=== PATIENT | male | born 1975 | race Caucasian/White ===

== ENCOUNTER 2023-08-26 05:57 | Emergency (ER) | payer SELFPAY ==
[2023-08-26 06:13] VITALS: TEMP 97.5
--- NOTE | 2023-08-26 06:15 | ERPHSYRPT ---
- History of Present Illness Source: patient Exam Limitations: no limitations Patient Subjective Stated Complaint: pt states he has been feeling short of breath since yesterday. denies any chest pain or pressure Triage Nursing Assessment: pt alert an d oriented, answes questions approp. pt ambulates into room with steady gait noted. pt short of breath, lungs cta bilat. occasional hacking cough noted. skin warm and dry Timing/Duration: yesterday Activities at Onset: none Severity of Dyspnea-Max: mild Severity of Dyspnea-Current: mild Possible Cause: no prior episodes Modifying Factors: Improves With: activity Associated Symptoms: anxiety, No chest pain/discomfort, No hemoptysis, No calf pain Hx Tetanus, Diphtheria Vaccination/Date Given: Yes Hx Influenza Vaccination/Date Given: No Hx Pneumococcal Vaccination/Date Given: No Immunizations Up to Date: Yes <LIN HOLLIDAY - Last Filed: 08/26/23 06:52> <OSMAN RANKIN - Last Filed: 08/26/23 13:00> - History of Present Illness Time Seen by Provider: 08/26/23 06:15 Physician History: This is an overweight 48-year-old white male patient who does not have a primary care provider and is not taking any medications despite a diagnosis in the past of hypertension and presents to the emergency room with complaint of cough and shortness of breath. Symptoms began yesterday. Patient is a daily smoker of cigarettes and has smoked a pack of cigarettes a day for approximately 30 years. Patient was brought in to the emergency department by the family vehicle. Patient was taking lisinopril approximately 2 years ago. However he has not been taking any medication for his high blood pressure. Patient is allowing a blood draw but refuses an IV line placement. (LIN HOLLIDAY) Allergies/Adverse Reactions: Penicillins Allergy (Intermediate, Verified 08/26/23 06:14) shrimp Allergy (Intermediate, Verified 08/26/23 06:14) Home Medications: No Reportable Medications [No Reported Medications] 08/26/23 [History] Travel Risk - International Travel Have you traveled outside of the country in past 3 weeks: No - Coronavirus Screening Are you exhibiting any of the following symptoms?: Yes Symptoms: Shortness of Breath Close contact with a COVID-19 positive Pt in past 14-21 Days: No - Vaccine Status Have you recieved a Covid-19 vaccination: No <LIN HOLLIDAY - Last Filed: 08/26/23 06:52> - Review of Systems Constitutional: No Symptoms Eyes: No Symptoms Ears, Nose, & Throat: No Symptoms Respiratory: Cough, Dyspnea, Dyspnea on Exertion (SMITH) Cardiac: No Symptoms Abdominal/Gastrointestinal: No Symptoms Genitourinary Symptoms: No Symptoms Musculoskeletal: No Symptoms Skin: No Symptoms Neurological: No Symptoms Psychological: No Symptoms Endocrine: No Symptoms Hematologic/Lymphatic: No Symptoms Immunological/Allergic: No Symptoms All Other Systems: Reviewed and Negative <LIN HOLLIDAY ElielJim - Last Filed: 08/26/23 06:52> - Past Medical History Pertinent Past Medical History: Yes Cardiac History: Hypertension - Past Surgical History Past Surgical History: Yes Gastrointestinal: Appendectomy - Social History Smoking Status: Current every day smoker How long have you smoked: 30yrs Exposure to second hand smoke: No Drug Use: none Patient Lives Alone: No <LIN HOLLIDAY - Last Filed: 08/26/23 06:52> - Physical Exam General Appearance: no apparent distress, alert, anxiety Eye Exam: PERRL/EOMI, eyes nml inspection Ears, Nose, Throat Exam: hearing grossly normal, normal ENT inspection, normal pharynx Neck Exam: normal inspection, non-tender, supple, full range of motion Respiratory Exam: normal breath sounds, lungs clear, airway intact, No chest tenderness, No respiratory distress Cardiovascular/Chest Exam: normal heart sounds, regular rate/rhythm Abdominal/Gastrointestinal Exam: soft, normal bowel sounds, No tenderness Rectal Exam: not done Extremity Exam: non-tender, normal range of motion, pedal edema (Bilateral feet and ankle) Neurologic Exam: alert, oriented x 3, cooperative, scene shifter II-XII nml as tested, normal mood/affect, nml cerebellar function, nml station & gait, sensation nml Skin Exam: normal color, warm, dry Lymphatic Exam: adenopathy SpO2 Interpretation: normal SpO2: 96 <LIN HOLLIDAY - Last Filed: 08/26/23 06:52> - Nursing Vital Signs Nursing Vital Signs: Initial Vital Signs Temperature 97.5 F 08/26/23 05:58 Pulse Rate 96 H 08/26/23 05:58 Respiratory Rate 24 08/26/23 05:58 Blood Pressure 193/121 01/09/24 05:58 O2 Sat by Pulse Oximetry 97 08/26/23 05:58 Pain Scale Pain Intensity 0 - Course Nursing assessment & vital signs reviewed: Yes EKG Interpreted by Me: RATE (97), Sinus Rhythm, NORMAL AXIS, prolonged QT interval (Borderline), NORMAL QRS, Other (No acute ischemic changes on today's twelve-lead EKG.) <LIN HOLLIDAY - Last Filed: 08/26/23 06:52> - Radiology Exams Chest X-ray Interpretation: Teleradiologist Report (Cardiomegaly pulmonary edema CHF) - CT Exams Chest CT Interpretation: Tele-radiologist Report (Negative for PE. Borderline enlarged heart. Small hiatal hernia diffuse pulmonary edema bilateral pleural effusions.) <OSMAN RANKIN - Last Filed: 08/26/23 13:00> Ordered Tests: Active Orders 24 hr Category Date Time Status Board Writer STAT Care 08/26/23 06:40 Active EKG-ER Only STAT Care 08/26/23 06:39 Active IV Insertion STAT Care 08/26/23 06:39 Active Pulse Oximetry (ED) STAT Care 08/26/23 06:39 Active CHEST 1 VIEW (PORTABLE) Stat Exams 08/26/23 06:40 Completed CHEST WITH CONTRAST [CT] Stat Exams 08/26/23 07:22 Completed CBC Q48H Lab 08/27/23 06:00 Ordered CBC Q48H Lab 08/29/23 06:00 Ordered CBC Q48H Lab 08/31/23 06:00 Ordered CBC Q48H Lab 09/02/23 06:00 Ordered CBC Q48H Lab 09/04/23 06:00 Ordered CBC Q48H Lab 09/06/23 06:00 Ordered CBC Q48H Lab 09/08/23 06:00 Ordered CBC Stat Lab 08/26/23 12:30 Completed CBC W DIFF Stat Lab 08/26/23 06:39 Completed CMP Stat Lab 08/26/23 06:54 Completed D-DIMER QUANTITATIVE Stat Lab 08/26/23 06:54 Completed MAGNESIUM Stat Lab 08/26/23 06:54 Completed MONO SCREEN Stat Lab 08/26/23 06:54 Completed NT PRO BNPII Stat Lab 08/26/23 06:54 Completed PROTIME WITH INR Stat Lab 08/26/23 06:54 Completed PROTIME WITH INR Stat Lab 08/26/23 12:30 Received PTT Q4H Lab 08/26/23 16:15 Ordered PTT Q4H Lab 08/26/23 20:15 Ordered PTT Q4H Lab 08/27/23 00:15 Ordered PTT Q4H Lab 08/27/23 04:15 Ordered PTT Q4H Lab 08/27/23 08:15 Ordered PTT Q4H Lab 08/27/23 12:15 Ordered PTT Q4H Lab 08/27/23 16:15 Ordered PTT Q4H Lab 08/27/23 20:15 Ordered PTT Q4H Lab 08/28/23 00:15 Ordered PTT Q4H Lab 08/28/23 04:15 Ordered PTT Q4H Lab 08/28/23 08:15 Ordered PTT Stat Lab 08/26/23 12:30 Received TROPONIN Q4H Lab 08/26/23 06:54 Completed TROPONIN Q4H Lab 08/26/23 10:59 Completed TROPONIN Q4H Lab 08/26/23 14:45 Ordered Medication Summary Generic Name Dose Route Start Last Admin Trade Name Freq PRN Reason Stop Dose Admin Heparin Sodium/Dextrose 25,000 units in 250 mls @ 14.184 mls/hr 08/26/23 12:30 08/26/23 12:36 Heparin 25,000 Units/D5w: Use Order Set Michael IV 09/25/23 12:29 12 units/kg/hr .[id number] KETAN 14.184 mls/hr Administration Protocol 12 UNITS/KG/HR Discontinued Medications Generic Name Dose Route Start Last Admin Trade Name Freq PRN Reason Stop Dose Admin Aspirin 324 mg 08/26/23 12:11 08/26/23 12:33 Aspirin 81 Mg Tab.Chew PO 08/26/23 12:12 324 mg STAT ONE Administration Aspirin Confirm 08/26/23 12:24 Aspirin 81 Mg Tab.Chew Administered 08/26/23 12:25 Dose 324 mg .ROUTE .STK-MED ONE Clonidine 0.2 mg 08/26/23 06:39 08/26/23 06:46 Clonidine Hcl 0.1 Mg Tablet PO 08/26/23 06:40 0.2 mg STAT ONE Administration Clonidine Confirm 08/26/23 06:44 Clonidine Hcl 0.1 Mg Tablet Administered 08/26/23 06:45 Dose 0.2 mg .ROUTE .STK-MED ONE Furosemide 40 mg 08/26/23 11:31 08/26/23 12:22 Furosemide 40 Mg/4 Ml Vial IV 08/26/23 11:32 40 mg STAT ONE Administration Furosemide Confirm 08/26/23 12:05 Furosemide 40 Mg/4 Ml Vial Administered 08/26/23 12:06 Dose 40 mg .ROUTE .STK-MED ONE Heparin Sodium (Beef Lung) 5,000 unit 08/26/23 12:10 08/26/23 12:33 Heparin 5000 Units/0.5 Ml 5,000 Unit/0.5 Ml Syr IV 08/26/23 12:11 5,000 unit STAT STA Administration Heparin Sodium (Beef Lung) Confirm 08/26/23 12:24 Heparin 5000 Units/0.5 Ml 5,000 Unit/0.5 Ml Syr Administered 08/26/23 12:25 Dose 5,000 unit .ROUTE .STK-MED ONE Lab/Rad Data: Laboratory Result Diagrams 08/26/23 12:30 08/26/23 06:54 Laboratory Results 08/26/23 08/26/23 08/26/23 Range/Units 12:30 10:59 06:54 WBC 8.7 (4.0-10.5) x10^3/uL RBC 4.52 (4.1-5.6) x10^6/uL Hgb 13.1 (12.5-18.0) g/dL Hct 40.6 L (42-50) % MCV 89.8 (78-100) fL MCH 29.0 (26-32) pg MCHC 32.3 (32-36) g/dL RDW 13.2 (11.5-14.0) % Plt Count 249 (150-450) x10^3/uL MPV 10.0 (7.5-11.0) fL Gran % (36.0-66.0) % Immature Gran % (Auto) (0.00-0.4) % Nucleat RBC Rel Count (0.00-0.1) % Eos # (Auto) (0-0.5) x10^3/uL Immature Gran # (Auto) (0.00-0.03) x10^3u/L Absolute Lymphs (auto) (1.0-4.6) x10^3/uL Absolute Monos (auto) (0.0-1.3) x10^3/uL Absolute Nucleated RBC (0.00-0.01) x10^3u/L Lymphocytes % (24.0-44.0) % Monocytes % (0.0-12.0) % Eosinophils % (0.00-5.0) % Basophils % (0.0-0.4) % Absolute Granulocytes (1.4-6.9) x10^3/uL Basophils # (0-0.4) x10^3/uL PT (9.4-12.5) SECONDS INR (0.8-3.0) D-Dimer (0.0-0.50) mg/L Sodium (137-145) mmol/L Potassium (3.5-5.1) mmol/L Chloride (98-107) mmol/L Carbon Dioxide (22-30) mmol/L Anion Gap (5-15) MEQ/L BUN (9-20) mg/dL Creatinine (0.66-1.25) mg/dL Estimated GFR ML/MIN Glucose (74-106) mg/dL Calcium (8.4-10.2) mg/dL Magnesium (1.6-2.3) mg/dL Total Bilirubin (0.2-1.3) mg/dL AST (17-59) U/L ALT (0-50) U/L Alkaline Phosphatase (38-126) U/L Troponin I 0.107 H* (0.000-0.034) ng/mL NT-Pro-B Natriuret Pep (<300) pg/mL Serum Total Protein (6.3-8.2) g/dL Albumin (3.5-5.0) g/dL Monoscreen POSITIVE (NEGATIVE) Influenza Type A Ag (NEGATIVE) Influenza Type B Ag (NEGATIVE) RSV (PCR) (NEGATIVE) SARS-CoV-2 (PCR) (NEGATIVE) 08/26/23 08/26/23 08/26/23 Range/Units 06:54 06:54 06:54 WBC (4.0-10.5) x10^3/uL RBC (4.1-5.6) x10^6/uL Hgb (12.5-18.0) g/dL Hct (42-50) % MCV (78-100) fL MCH (26-32) pg MCHC (32-36) g/dL RDW (11.5-14.0) % Plt Count (150-450) x10^3/uL MPV (7.5-11.0) fL Gran % (36.0-66.0) % Immature Gran % (Auto) (0.00-0.4) % Nucleat RBC Rel Count (0.00-0.1) % Eos # (Auto) (0-0.5) x10^3/uL Immature Gran # (Auto) (0.00-0.03) x10^3u/L Absolute Lymphs (auto) (1.0-4.6) x10^3/uL Absolute Monos (auto) (0.0-1.3) x10^3/uL Absolute Nucleated RBC (0.00-0.01) x10^3u/L Lymphocytes % (24.0-44.0) % Monocytes % (0.0-12.0) % Eosinophils % (0.00-5.0) % Basophils % (0.0-0.4) % Absolute Granulocytes (1.4-6.9) x10^3/uL Basophils # (0-0.4) x10^3/uL PT 10.1 (9.4-12.5) SECONDS INR 0.92 (0.8-3.0) D-Dimer 1.79 H* (0.0-0.50) mg/L Sodium 137 (137-145) mmol/L Potassium 3.6 (3.5-5.1) mmol/L Chloride 104 (98-107) mmol/L Carbon Dioxide 26 (22-30) mmol/L Anion Gap 10.6 (5-15) MEQ/L BUN 7 L (9-20) mg/dL Creatinine 0.80 (0.66-1.25) mg/dL Estimated GFR 109.2 ML/MIN Glucose 114 H (74-106) mg/dL Calcium 8.9 (8.4-10.2) mg/dL Magnesium 2.2 (1.6-2.3) mg/dL Total Bilirubin 0.90 (0.2-1.3) mg/dL AST 28 (17-59) U/L ALT 42 (0-50) U/L Alkaline Phosphatase 62 (38-126) U/L Troponin I 0.084 H* (0.000-0.034) ng/mL NT-Pro-B Natriuret Pep 1770 (<300) pg/mL Serum Total Protein 7.5 (6.3-8.2) g/dL Albumin 4.0 (3.5-5.0) g/dL Monoscreen (NEGATIVE) Influenza Type A Ag (NEGATIVE) Influenza Type B Ag (NEGATIVE) RSV (PCR) (NEGATIVE) SARS-CoV-2 (PCR) (NEGATIVE) 08/26/23 08/26/23 Range/Units 06:53 06:39 WBC 8.3 (4.0-10.5) x10^3/uL RBC 4.71 (4.1-5.6) x10^6/uL Hgb 13.7 (12.5-18.0) g/dL Hct 42.6 (42-50) % MCV 90.4 (78-100) fL MCH 29.1 (26-32) pg MCHC 32.2 (32-36) g/dL RDW 13.0 (11.5-14.0) % Plt Count 267 (150-450) x10^3/uL MPV 10.8 (7.5-11.0) fL Gran % 74.2 H (36.0-66.0) % Immature Gran % (Auto) 0.4 (0.00-0.4) % Nucleat RBC Rel Count 0.0 (0.00-0.1) % Eos # (Auto) 0.11 (0-0.5) x10^3/uL Immature Gran # (Auto) 0.03 (0.00-0.03) x10^3u/L Absolute Lymphs (auto) 1.47 (1.0-4.6) x10^3/uL Absolute Monos (auto) 0.47 (0.0-1.3) x10^3/uL Absolute Nucleated RBC 0.00 (0.00-0.01) x10^3u/L Lymphocytes % 17.8 L (24.0-44.0) % Monocytes % 5.7 (0.0-12.0) % Eosinophils % 1.3 (0.00-5.0) % Basophils % 0.6 (0.0-0.4) % Absolute Granulocytes 6.13 (1.4-6.9) x10^3/uL Basophils # 0.05 (0-0.4) x10^3/uL PT (9.4-12.5) SECONDS INR (0.8-3.0) D-Dimer (0.0-0.50) mg/L Sodium (137-145) mmol/L Potassium (3.5-5.1) mmol/L Chloride (98-107) mmol/L Carbon Dioxide (22-30) mmol/L Anion Gap (5-15) MEQ/L BUN (9-20) mg/dL Creatinine (0.66-1.25) mg/dL Estimated GFR ML/MIN Glucose (74-106) mg/dL Calcium (8.4-10.2) mg/dL Magnesium (1.6-2.3) mg/dL Total Bilirubin (0.2-1.3) mg/dL AST (17-59) U/L ALT (0-50) U/L Alkaline Phosphatase (38-126) U/L Troponin I (0.000-0.034) ng/mL NT-Pro-B Natriuret Pep (<300) pg/mL Serum Total Protein (6.3-8.2) g/dL Albumin (3.5-5.0) g/dL Monoscreen (NEGATIVE) Influenza Type A Ag NEGATIVE (NEGATIVE) Influenza Type B Ag NEGATIVE (NEGATIVE) RSV (PCR) NEGATIVE (NEGATIVE) SARS-CoV-2 (PCR) NEGATIVE (NEGATIVE) - Progress Progress: improved, re-examined Air Movement: good Blood Culture(s) Obtained: No Antibiotics given: No <LIN HOLLIDAY - Last Filed: 08/26/23 06:52> - Progress Counseled pt/family regarding: lab results, diagnosis, rad results <OSMAN RANKIN - Last Filed: 08/26/23 13:00> - Progress Progress Note: 08/26/23 06:35 This patient's medical issue is 1 of moderate complexity. The level of com plexity and the workup performed is based on review of the patient's past medical history, review of the patient's medication list, review of the patient's drug allergy list, history present illness and physical findings on examination. The workup in this patient includes CBC, CMP, D-dimer, troponin, BNP, twelve-lead EKG, chest x-ray. Patient is hypertensive and we will bring his blood pressure down with clonidine orally. Patient does not want an IV placed. I explained the benefits of the IV including the need for an IV if clonidine is not resolving his high blood pressure and possibly the needs of intravenous line if the D-dimer returns elevated. We will also perform monotest and viral swabs. 08/26/23 06:37 Patient care will be transferred to Dr. Osman Rankin at shift change. He will be advised of the laboratory and radiographic studies that are pending and he will follow-up on these tests and make final disposition. (LIN HOLLIDAY) 48-year-old male endorsed to Dr. Rankin at approximately 7 AM. Upon arrival patient was hypertensive. Dr. Zhu administered clonidine. Dr. Rankin advised follow-up on pending studies. D-dimer positive. CTA chest negative for PE. However there was pulmonary edema cardiomegaly and bibasilar effusions. Physical exam reveals bilateral lower extremity pitting edema 2+. Troponin elevated at 0.08. Repeat elevated at 0.1. Patient denied chest pain. Patient received heparin bolus/drip and aspirin. 40 of Lasix IV administered. Due to troponin trending upward patient transferred to higher level of care. Patient was auto accepted by Dr. Mai of [facility]. Patient accepted at 12:30 PM. Plan of care discussed with patient. He agrees to transfer to [facility] for further evaluation and treatment. Portions of this note were created with voice recognition technology. There may be grammatical, spelling, punctuation or sound alike errors 08/26/23 12:55 (OSMAN RANKIN) - Departure Departure Disposition: Home Critical Care Time: No <LIN HOLLIDAY - Last Filed: 08/26/23 06:52> - Departure Critical Care Time: No <OSMAN RANKIN - Last Filed: 08/26/23 13:00> - Departure Clinical Impression: Shortness of breath, Mononucleosis, Elevated cardiac troponin, Borderline cardiomegaly, Small hiatal hernia, Diffuse pulmonary edema, Bilateral pleural effusion, Elevated brain natriuretic peptide (BNP) level, Congestive heart failure, Hypertensive emergency Condition: Stable Referrals: DOCTOR,NO FAMILY [Primary Care Provider] - Follow up/PCP as directed Instructions: Heart Failure
[2023-08-26] MEDS ORDERED: CLONIDINE 0.1 MG TABLET PO ONE (06:39)
[2023-08-26] MEDS ORDERED: CLONIDINE 0.1 MG TABLET ONE (06:44)
[2023-08-26 06:49] LABS: Absolute Neutrophil Ct (ANC) 6.13 x10^3/uL (1.4-6.9); BASOPHIL % 0.6 % (0.0-0.4); Basophil (Absolute #) 0.05 x10^3/uL (0-0.4); Eosinophil % 1.3 % (0.00-5.0); Eosinophil (Absolute #) 0.11 x10^3/uL (0-0.5); Hematocrit 42.6 % (42-50); Hemoglobin 13.7 g/dL (12.5-18.0); IMMATURE GRAN # 0.03 x10^3u/L (0.00-0.03); IMMATURE GRAN % 0.4 % (0.00-0.4); Lymphocyte (Absolute #) 1.47 x10^3/uL (1.0-4.6); Lymphocytes % 17.8 % (24.0-44.0); Mean Cell Volume 90.4 fL (78-100); Mean Corpuscular Hemoglobin 29.1 pg (26-32); Mean Corpuscular Hgb Concent. 32.2 g/dL (32-36); Mean Platelet Volume 10.8 fL (7.5-11.0); Monocyte (Absolute #) 0.47 x10^3/uL (0.0-1.3); Monocytes % 5.7 % (0.0-12.0); Neutrophil % 74.2 % (36.0-66.0); Platelet Count 267 x10^3/uL (150-450); Red Blood Count 4.71 x10^6/uL (4.1-5.6); White Blood Count 8.3 x10^3/uL (4.0-10.5)
[2023-08-26 07:02] LABS: ANION GAP 10.6 MEQ/L (5-15); BILIRUBIN,TOTAL 0.9 mg/dL (0.2-1.3); Calcium 8.9 mg/dL (8.4-10.2); Creatinine 1 0.8 mg/dL (0.66-1.25); EST GLOMERULAR FILTRATION RATE 109.2 ML/MIN; MAGNESIUM 2.2 mg/dL (1.6-2.3); Potassium 3.6 mmol/L (3.5-5.1); Total Protein 7.5 g/dL (6.3-8.2)
[2023-08-26 07:10] LABS: INR 0.92 (0.8-3.0); PROTIME 10.1 SECONDS (9.4-12.5)
[2023-08-26 07:12] LABS: D-DIMER QUANTITATIVE 1.79 mg/L (0.0-0.50)
[2023-08-26 07:33] LABS: INFLUENZA A NEGATIVE (NEGATIVE); INFLUENZA B NEGATIVE (NEGATIVE); RESPIRATORY SYNCTIAL VIRUS NEGATIVE (NEGATIVE); SARS-CoV-2 Xpert Express NEGATIVE (NEGATIVE)
[2023-08-26 07:34] LABS: TROPONIN 0.084 ng/mL (0.000-0.034)
--- NOTE | 2023-08-26 08:33 | XRAY ---
Indication: Short of breath. Elevated d-dimer. Multiple contiguous axial images obtained through the chest using 80 cc Isovue 370 contrast and PE protocol. Comparison: None Good opacification of the pulmonary arteries to include the lobar and segmental branches. No pulmonary embolus. Heart is borderline enlarged. Aorta is normal in course and caliber. No pathologic mediastinal/hilar lymphadenopathy. Small hiatal hernia. Lungs demonstrate diffuse pulmonary edema with small bilateral effusions. Bony thorax intact. Limited upper abdomen demonstrate fatty liver. Impression: 1. Negative pulmonary embolus. 2. Borderline cardiomegaly, diffuse pulmonary edema, and bilateral effusions. Rule out cardiac decompensation/CHF versus fluid overload. 3. Incidental hiatal hernia and fatty liver.
--- NOTE | 2023-08-26 08:35 | XRAY ---
Indication: Cough and short of breath. Comparison: None Portable chest demonstrates cardiomegaly, pulmonary edema, and tiny bibasilar effusions favoring cardiac decompensation/CHF. Superimposed pneumonia not completely excluded. Bony thorax intact.
[2023-08-26 10:24] VITALS: BP 168/115; PULSE 83; RESP 19; O2SAT 94
[2023-08-26] MEDS ORDERED: Lasix 40 MG/4 ML IV ONE (11:31)
[2023-08-26] MEDS ORDERED: Lasix 40 MG/4 ML ONE (12:05)
[2023-08-26] MEDS ORDERED: HEPARIN 5000 UNITS/0.5 ML (HIGH RISK MED) IV STA (12:10)
[2023-08-26] MEDS ORDERED: BABY ASPIRIN 81 MG CHEW PO ONE (12:11)
[2023-08-26] MEDS ORDERED: BABY ASPIRIN 81 MG CHEW ONE (12:24)
[2023-08-26] MEDS ORDERED: HEPARIN 5000 UNITS/0.5 ML (HIGH RISK MED) ONE (12:24)
[2023-08-26] MEDS ORDERED: Heparin 25,000 units/D5W: USE ORDER SET PROTO 0 UNITS/0 ML BAG IV ONE (12:25)
[2023-08-26] MEDS ORDERED: Heparin 25,000 units/D5W: USE ORDER SET PROTO 25,000 UNITS/250 ML BAG IV SCH (12:30)
[2023-08-26] MEDS ORDERED: Heparin 25,000 units/D5W: USE ORDER SET PROTO 25,000 UNITS/250 ML BAG IV ONE (12:34)
[2023-08-26 12:37] LABS: Hematocrit 40.6 % (42-50); Hemoglobin 13.1 g/dL (12.5-18.0); Mean Cell Volume 89.8 fL (78-100); Mean Corpuscular Hgb Concent. 32.3 g/dL (32-36); Platelet Count 249 x10^3/uL (150-450); Red Blood Count 4.52 x10^6/uL (4.1-5.6); Red Cell Distribution Width 13.2 % (11.5-14.0); White Blood Count 8.7 x10^3/uL (4.0-10.5)
[2023-08-26 13:14] LABS: INR 0.94 (0.8-3.0); PROTIME 10.3 SECONDS (9.4-12.5); PTT 25.3 SECONDS (25.1-36.5)
== END 2023-08-26 13:50 | disposition short-term general hospital (02) ==
LOC: ED 05:57
DX: B27.90 Infectious mononucleosis, unspecified without complication (principal); R06.02 Shortness of breath; R77.8 Other specified abnormalities of plasma proteins; K44.9 Diaphragmatic hernia without obstruction or gangrene; J81.1 Chronic pulmonary edema; J90 Pleural effusion, not elsewhere classified; R79.89 Other specified abnormal findings of blood chemistry; I16.1 Hypertensive emergency; I11.0 Hypertensive heart disease with heart failure; I50.9 Heart failure, unspecified; R05.1 Acute cough; Z28.310 Unvaccinated for COVID-19; Z72.0 Tobacco use
CPT/HCPCS: 0241U; 36000; 36415; 71045; 71260; 80053; 83735; 83880; 84484; 85025; 85027; 85379; 85610; 85730; 86308; 93005; 93041; 94760; 96365; 96374; 96375; 99284; J1644; J1940; A9270-GY

== ENCOUNTER 2023-12-10 01:57 | Observation (INO) | payer SELFPAY ==
--- NOTE | 2023-12-10 02:43 | ERPHSYRPT ---
- History of Present Illness Time Seen by Provider: 12/10/23 02:39 Source: patient Exam Limitations: no limitations Patient Subjective Stated Complaint: fever Triage Nursing Assessment: pt ambulated into ER without diff. Pt is alert and oriented x4. Pt c/o having a fever of 102.3 at home tonight around 9pm and did take Tylenol at 0040. Pt is afebrile here at 98.9 oral. Pt had umbicial hernia surgery on 11/18/23 and took all of his antibiotics and denies any pain, but got concerned when he spiked a fever. Incision is completely healed, no drainage noted. Pt has abd binder in place. Physician History: 48-year-old male presents to the emergency department for evaluation of a fever. Patient reports he is 3 weeks postop periumbilical hernia repair. Patient states he spiked a fever of 102.3 at home. Fever was observed at approximately 9 PM. Patient took a Tylenol at 12:40 PM. Patient currently afebrile. Patient denies abdominal pain. No nausea vomiting or diaphoresis. Symptoms are mild to moderate in intensity. No specific worsening improving factors. Patient has a resting tachycardia and appears very anxious patient voices no other complaints concerns at this time. Portions of this note were created with voice recognition technology. There may be grammatical, spelling, punctuation or sound alike errors Timing/Duration: today Fever Severity: moderate Associated Symptoms: denies symptoms Allergies/Adverse Reactions: Penicillins Allergy (Intermediate, Verified 12/10/23 02:27) shrimp Allergy (Intermediate, Verified 12/10/23 02:27) Home Medications: Aspirin EC 325 mg [Ecotrin 325 MG] 1 tab PO DAILY 12/10/23 [History] Carvedilol 3.125 mg [Coreg 3.125 MG] 1 tab PO BID 12/10/23 [History] Furosemide [Lasix] 20 mg PO DAILY 12/10/23 [History] Losartan Potassium 100 mg PO DAILY 12/10/23 [History] Spironolactone 12.5 mg PO DAILY 12/10/23 [History] Hx Tetanus, Diphtheria Vaccination/Date Given: Yes Hx Influenza Vaccination/Date Given: No Hx Pneumococcal Vaccination/Date Given: No Travel Risk - International Travel Have you traveled outside of the country in past 3 weeks: No - Emerging Infectious Disease Are you exhibiting symptoms associated with any current EIDs: Yes Symptoms: Fever - Review of Systems Constitutional: No Symptoms, No Fever, No Chills Eyes: No Symptoms Ears, Nose, & Throat: No Symptoms Respiratory: No Symptoms, No Cough, No Dyspnea Cardiac: No Symptoms, No Chest Pain, No Edema, No Syncope Abdominal/Gastrointestinal: No Symptoms, No Abdominal Pain, No Nausea, No Vomiting, No Diarrhea Genitourinary Symptoms: No Symptoms, No Dysuria Musculoskeletal: No Symptoms, No Back Pain, No Neck Pain Skin: No Symptoms, No Rash Neurological: No Symptoms, No Dizziness, No Focal Weakness, No Sensory Changes Psychological: No Symptoms Endocrine: No Symptoms Hematologic/Lymphatic: No Symptoms Immunological/Allergic: No Symptoms All Other Systems: Reviewed and Negative - Past Medical History Pertinent Past Medical History: Yes Neurological History: No Pertinent History ENT History: No Pertinent History Cardiac History: Congestive Heart Failure, Hypertension Respiratory History: No Pertinent History Endocrine Medical History: No Pertinent History Musculoskeletal History: No Pertinent History GI Medical History: Hernia History: No Pertinent History Psycho-Social History: No Pertinent History Male Reproductive Disorders: No Pertinent History - Past Surgical History Past Surgical History: Yes Neuro Surgical History: No Pertinent History Cardiac: No Pertinent History, Cardiac Catheterization Respiratory: No Pertinent History Gastrointestinal: Appendectomy, Hernia Repair Genitourinary: No Pertinent History Musculoskeletal: No Pertinent History Male Surgical History: No Pertinent History - Social History Smoking Status: Current every day smoker How long have you smoked: 25 yrs Exposure to second hand smoke: Yes Drug Use: none Patient Lives Alone: No - Nursing Vital Signs Nursing Vital Signs: Initial Vital Signs Temperature 98.9 F 12/10/23 02:17 Pulse Rate 121 H 12/10/23 02:17 Respiratory Rate 20 12/10/23 02:17 Blood Pressure 159/105 12/10/23 02:17 O2 Sat by Pulse Oximetry 95 12/10/23 02:17 Pain Scale Pain Intensity 0 - Physical Exam General Appearance: no apparent distress, alert Eye Exam: PERRL/EOMI ENT Exam: normal ENT inspection, No pharyngeal erythema, No tonsillar exudate Neck Exam: supple, full range of motion, No meningismus Respiratory Exam: normal breath sounds, lungs clear, no respiratory distress Cardiovascular/Chest Exam: normal heart sounds, regular rate/rhythm, No murmur, No edema Gastrointestinal/Abdominal Exam: soft, non tender, no distention Extremity Exam: non-tender, normal range of motion, normal inspection, normal capillary refill Neurologic Exam: alert, oriented x 3, cooperative, french polisher II-XII nml as tested, normal mood/affect, sensation nml, No motor deficits Skin Exam: normal color, warm, dry, No rash Lymphatic: No adenopathy SpO2 Interpretation: normal SpO2: 95 O2 Delivery: Room Air - Course Nursing assessment & vital signs reviewed: Yes EKG Interpreted by Me: RATE ([id number]), Sinus Tach, NORMAL AXIS, NORMAL INTERVALS Ordered Tests: Active Orders 24 hr Category Date Time Status Team Member STAT Care 12/10/23 02:36 Active EKG-ER Only STAT Care 12/10/23 02:35 Active IV Insertion STAT Care 12/10/23 02:35 Active Pulse Oximetry (ED) STAT Care 12/10/23 02:35 Active BLOOD CULTURE Stat Lab 12/10/23 03:30 Received CBC W DIFF Stat Lab 12/10/23 03:18 Completed CMP Stat Lab 12/10/23 03:18 Completed CULTURE,URINE Stat Lab 12/10/23 02:39 Received Lactic Acid Stat Lab 12/10/23 03:25 Completed UA W/RFX UR CULTURE Stat Lab 12/10/23 02:39 Completed Transfer Order Routine Transfer 12/10/23 Ordered Medication Summary Generic Name Dose Route Start Last Admin Trade Name Freq PRN Reason Stop Dose Admin Levofloxacin/Dextrose 500 mg in 100 mls @ 100 mls/hr 12/10/23 03:32 12/10/23 03:39 Levofloxacin 500mg/100ml D5w IV 12/10/23 04:31 100 mls/hr STAT STA 100 mls/hr Administration Discontinued Medications Generic Name Dose Route Start Last Admin Trade Name Freq PRN Reason Stop Dose Admin Sodium Chloride 1,000 mls @ 999 mls/hr 12/10/23 02:35 12/10/23 03:00 Sodium Chloride 0.9% 1000 Ml IV 12/10/23 03:35 250 mls/hr .Q1H1M STA Administration Sodium Chloride Confirm 12/10/23 02:58 Sodium Chloride 0.9% 1000 Ml Administered 12/10/23 02:59 Dose 1,000 mls @ ud .ROUTE .STK-MED ONE Levofloxacin/Dextrose Confirm 12/10/23 03:35 Levofloxacin 500mg/100ml D5w Administered 12/10/23 03:36 Dose 500 mg in 100 mls @ ud IV .K-MED ONE Lab/Rad Data: Laboratory Result Diagrams 12/10/23 03:18 12/10/23 03:18 Laboratory Results 12/10/23 12/10/23 12/10/23 Range/Units 03:25 03:18 03:18 WBC (4.0-10.5) x10^3/uL RBC (4.1-5.6) x10^6/uL Hgb (12.5-18.0) g/dL Hct (42-50) % MCV (78-100) fL MCH (26-32) pg MCHC (32-36) g/dL RDW (11.5-14.0) % Plt Count (150-450) x10^3/uL MPV (7.5-11.0) fL Gran % (36.0-66.0) % Immature Gran % (Auto) (0.00-0.4) % Nucleat RBC Rel Count (0.00-0.1) % Eos # (Auto) (0-0.5) x10^3/uL Immature Gran # (Auto) (0.00-0.03) x10^3u/L Absolute Lymphs (auto) (1.0-4.6) x10^3/uL Absolute Monos (auto) (0.0-1.3) x10^3/uL Absolute Nucleated RBC (0.00-0.01) x10^3u/L Lymphocytes % (24.0-44.0) % Monocytes % (0.0-12.0) % Eosinophils % (0.00-5.0) % Basophils % (0.0-0.4) % Absolute Granulocytes (1.4-6.9) x10^3/uL Basophils # (0-0.4) x10^3/uL Sodium 136 (135-145) mmol/L Potassium 3.8 (3.5-5.1) mmol/L Chloride 104 (98-107) mmol/L Carbon Dioxide 21 L (22-30) mmol/L Anion Gap 14.2 (5-15) MEQ/L BUN 18 (9-20) mg/dL Creatinine 1.25 (0.66-1.25) mg/dL Estimated GFR 71.0 ML/MIN Glucose 148 H (74-106) mg/dL Lactic Acid 1.9 (0.4-2.0) Calcium 9.0 (8.4-10.2) mg/dL Total Bilirubin 1.50 H (0.2-1.3) mg/dL AST 20 (17-59) U/L ALT 32 (0-50) U/L Alkaline Phosphatase 61 (38-126) U/L Serum Total Protein 7.0 (6.3-8.2) g/dL Albumin 3.9 (3.5-5.0) g/dL Urine Color (Yellow) Urine Appearance (Clear) Urine pH (4.6-8.0) Ur Specific [place] (1.005-1.030) Urine Protein (Negative) Urine Glucose (UA) (Negative) mg/dL Urine Ketones (Negative) Urine Blood (Negative) Urine Nitrite (Negative) Urine Bilirubin (Negative) Urine Urobilinogen (0.2) mg/dL Ur Leukocyte Esterase (Negative) U Hyaline Cast (Auto) (0-2) /LPF Urine Microscopic RBC (0-5) /HPF Urine Microscopic WBC (0-5) /HPF Ur Epithelial Cells (None Seen) /HPF Urine Bacteria (None Seen) /HPF Urine Culture Reflexed (NO) Influenza Type A Ag NEGATIVE (NEGATIVE) Influenza Type B Ag NEGATIVE (NEGATIVE) RSV (PCR) NEGATIVE (NEGATIVE) SARS-CoV-2 (PCR) NEGATIVE (NEGATIVE) 12/10/23 12/10/23 Range/Units 03:18 02:39 WBC 18.0 H (4.0-10.5) x10^3/uL RBC 4.52 (4.1-5.6) x10^6/uL Hgb 13.6 (12.5-18.0) g/dL Hct 40.8 L (42-50) % MCV 90.3 (78-100) fL MCH 30.1 (26-32) pg MCHC 33.3 (32-36) g/dL RDW 13.2 (11.5-14.0) % Plt Count 223 (150-450) x10^3/uL MPV 10.0 (7.5-11.0) fL Gran % 80.5 H (36.0-66.0) % Immature Gran % (Auto) 0.6 H (0.00-0.4) % Nucleat RBC Rel Count 0.0 (0.00-0.1) % Eos # (Auto) 0.01 (0-0.5) x10^3/uL Immature Gran # (Auto) 0.10 H (0.00-0.03) x10^3u/L Absolute Lymphs (auto) 1.82 (1.0-4.6) x10^3/uL Absolute Monos (auto) 1.50 H (0.0-1.3) x10^3/uL Absolute Nucleated RBC 0.00 (0.00-0.01) x10^3u/L Lymphocytes % 10.1 L (24.0-44.0) % Monocytes % 8.4 (0.0-12.0) % Eosinophils % 0.1 (0.00-5.0) % Basophils % 0.3 (0.0-0.4) % Absolute Granulocytes 14.48 H (1.4-6.9) x10^3/uL Basophils # 0.05 (0-0.4) x10^3/uL Sodium (135-145) mmol/L Potassium (3.5-5.1) mmol/L Chloride (98-107) mmol/L Carbon Dioxide (22-30) mmol/L Anion Gap (5-15) MEQ/L BUN (9-20) mg/dL Creatinine (0.66-1.25) mg/dL Estimated GFR ML/MIN Glucose (74-106) mg/dL Lactic Acid (0.4-2.0) Calcium (8.4-10.2) mg/dL Total Bilirubin (0.2-1.3) mg/dL AST (17-59) U/L ALT (0-50) U/L Alkaline Phosphatase (38-126) U/L Serum Total Protein (6.3-8.2) g/dL Albumin (3.5-5.0) g/dL Urine Color Dark Yellow (Yellow) Urine Appearance Clear (Clear) Urine pH 5.5 (4.6-8.0) Ur Specific [place] 1.025 (1.005-1.030) Urine Protein 100 A (Negative) Urine Glucose (UA) Negative (Negative) mg/dL Urine Ketones Negative (Negative) Urine Blood Moderate A (Negative) Urine Nitrite Negative (Negative) Urine Bilirubin Negative (Negative) Urine Urobilinogen 1.0 A (0.2) mg/dL Ur Leukocyte Esterase Moderate A (Negative) U Hyaline Cast (Auto) NONE SEEN (0-2) /LPF Urine Microscopic RBC 3-5 (0-5) /HPF Urine Microscopic WBC >100 A (0-5) /HPF Ur Epithelial Cells None Seen (None Seen) /HPF Urine Bacteria Rare A (None Seen) /HPF Urine Culture Reflexed YES (NO) Influenza Type A Ag (NEGATIVE) Influenza Type B Ag (NEGATIVE) RSV (PCR) (NEGATIVE) SARS-CoV-2 (PCR) (NEGATIVE) - Progress Progress: improved Progress Note: Patient accepted by Dr. Laguna at 3:48 AM. Plan of care discussed with patient. Patient agreed to admission saw the [facility] for further evaluation and treatment. Patient is a 48-year-old male presents to our ED for evaluation of a fever. Pat ient was tachycardic on physical exam. Workup reveals a leukocytosis of 18,000. Urinalysis significant for a pyuria as well as leukocyte esterase. Patient is penicillin allergic. Patient received Levaquin IV. Patient will require hospitalization for further evaluation and treatment. IV fluids administered at a rate of 250. Patient has a history of CHF so we held off on a rapid bolus. Portions of this note were created with voice recognition technology. There may be grammatical, spelling, punctuation or sound alike errors Complexity of problem addresses high, severe exacerbation threat to bodily function. Patient has pyelonephritis No critical care time Complexity of data reviewed and analyzed is extensive. Test ordered test reviewed results analyzed and correlated clinically with history and physical examination. Case discussed with hospitalist accepts admission to observation. Risk of complication and risk of morbidity/mortality patient management is high. Patient requires hospitalization for further evaluation and treatment. Vital stable. Time spent admit patient approximately 20 minutes. Plan of care established via shared decision making. No social determinants of health present complete follow-up. Portions of this note were created with voice recognition technology. There may be grammatical, spelling, punctuation or sound alike errors 12/10/23 03:48 Counseled pt/family regarding: lab results, diagnosis - Departure Departure Disposition: Observation Clinical Impression: Pyelonephritis, Tachycardia, Fever, UTI (urinary tract infection), Leukocytosis Condition: Stable Critical Care Time: No Referrals: NARA VALENTINE, VP ACCOUNT DIRECTOR [Primary Care Provider] - Follow up/PCP as directed
[2023-12-10] MEDS ORDERED: Sodium Chloride 0.9% 1000 ML 1,000 ML ONE (02:58)
[2023-12-10] MEDS: Sodium Chloride 0.9% 1000 ML 1,000 ML IV STA (03:00)
[2023-12-10 03:20] LABS: Appearance Clear (Clear); Bacteria Rare /HPF (None Seen); Bilirubin Negative (Negative); Blood Moderate (Negative); Epithelial Cells None Seen /HPF (None Seen); Glucose, Urine Negative (Negative); Hyaline Casts NONE SEEN /LPF (0-2); Ketones Negative (Negative); Leukocyte Esterase Moderate (Negative); Nitrite Negative (Negative); Ph 5.5 (4.6-8.0); Protein,Urine Dip 100 (Negative); Specific Gravity 1.025 (1.005-1.030); WBC >100 /HPF (0-5)
[2023-12-10 03:22] LABS: Absolute Neutrophil Ct (ANC) 14.48 x10^3/uL (1.4-6.9); BASOPHIL % 0.3 % (0.0-0.4); Basophil (Absolute #) 0.05 x10^3/uL (0-0.4); Eosinophil % 0.1 % (0.00-5.0); Eosinophil (Absolute #) 0.01 x10^3/uL (0-0.5); Hematocrit 40.8 % (42-50); Hemoglobin 13.6 g/dL (12.5-18.0); IMMATURE GRAN % 0.6 % (0.00-0.4); Lymphocyte (Absolute #) 1.82 x10^3/uL (1.0-4.6); Lymphocytes % 10.1 % (24.0-44.0); Mean Cell Volume 90.3 fL (78-100); Mean Corpuscular Hemoglobin 30.1 pg (26-32); Mean Corpuscular Hgb Concent. 33.3 g/dL (32-36); Monocytes % 8.4 % (0.0-12.0); Neutrophil % 80.5 % (36.0-66.0); Platelet Count 223 x10^3/uL (150-450); Red Blood Count 4.52 x10^6/uL (4.1-5.6); Red Cell Distribution Width 13.2 % (11.5-14.0)
[2023-12-10 03:26] LABS: ADD URINE CULTURE? YES (NO)
[2023-12-10 03:34] LABS: ALBUMIN 3.9 g/dL (3.5-5.0); ANION GAP 14.2 MEQ/L (5-15); BILIRUBIN,TOTAL 1.5 mg/dL (0.2-1.3); Creatinine 1 1.25 mg/dL (0.66-1.25); Potassium 3.8 mmol/L (3.5-5.1)
[2023-12-10] MEDS ORDERED: Levofloxacin 500MG/100ML D5W 500 MG/100 ML BAG IV ONE (03:35)
[2023-12-10] MEDS: Levofloxacin 500MG/100ML D5W 500 MG/100 ML BAG IV STA (03:39)
[2023-12-10 03:59] LABS: INFLUENZA A NEGATIVE (NEGATIVE); INFLUENZA B NEGATIVE (NEGATIVE); RESPIRATORY SYNCTIAL VIRUS NEGATIVE (NEGATIVE); SARS-CoV-2 Xpert Express NEGATIVE (NEGATIVE)
--- NOTE | 2023-12-10 07:18 | PCM.HP ---
History of Present Illness - Chief Complaint Chief Complaint: Pyelonephritis, urinary tract infection Date: 12/10/23 History of Present Illness: Mr. REESE is a 48 year old male with a past medical history significant for hypertension, hyperlipidemia and CHF who had recent umbilical hernia repair earlier this month but presents to the hospital with complaints of fever and chills with temp up to 102. He was found to have an elevated WBC count and was tachycardic. Urinalysis demonstrated pyuria and he was recommended for admission for fluids and antibiotics. He is resting in bed, awake/alert, just anxious. No dysuria, hematuria or urgency. No nausea, vomiting or diarrhea. - Review of Systems Constitutional: Fever, Chills Eyes: No Vision Changes Ears, Nose, & Throat: No Throat Swelling Respiratory: No Cough, No Short Of Breath Cardiac: No Chest Pain, No Edema, No Palpitations Abdominal/Gastrointestinal: No Abdominal Pain, No Nausea, No Vomiting Genitourinary Symptoms: No Dysuria, No Frequency, No Hematuria Musculoskeletal: No Arthralgias Skin: No Rash Neurological: No Dizziness Psychological: No Suicidal Ideations Medications & Allergies Home Medications: Home Medication List Aspirin EC 325 mg [Ecotrin 325 MG] 1 tab PO DAILY 12/10/23 [History Confirmed 12/10/23] Carvedilol 3.125 mg [Coreg 3.125 MG] 1 tab PO BID 12/10/23 [History Confirmed 12/10/23] Furosemide [Lasix] 20 mg PO DAILY 12/10/23 [History Confirmed 12/10/23] Losartan Potassium 100 mg PO DAILY 12/10/23 [History Confirmed 12/10/23] Spironolactone 12.5 mg PO DAILY 12/10/23 [History Confirmed 12/10/23] Allergies/Adverse Reactions: Allergies Allergy/AdvReac Type Severity Reaction Status Date / Time Penicillins Allergy Intermediate Verified 12/10/23 02:27 shrimp Allergy Intermediate Verified 12/10/23 02:27 - Past Medical History Past Medical History: Yes Neurological History: No Pertinent History ENT History: No Pertinent History Cardiac History: Congestive Heart Failure, Hypertension Respiratory History: No Pertinent History Endocrine Medical History: No Pertinent History Musculoskelatal History: No Pertinent History GI Medical History: Hernia History: No Pertinent History Pyscho-Social History: No Pertinent History Male Reproductive Disorders: No Pertinent History - Past Surgical History Past Surgical History: Yes Neuro Surgical History: No Pertinent History Cardiac History: No Pertinent History, Cardiac Catheterization Respiratory Surgery: No Pertinent History GI Surgical History: Appendectomy, Hernia Repair Genitourinary Surgical Hx: No Pertinent History Musculskeletal Surgical Hx: No Pertinent History Male Surgical History: No Pertinent History - Social History Smoking Status: Current every day smoker How long have you smoked: 25 yrs Exposure to second hand smoke: Yes Alcohol: Rarely Drug Use: none - Social Determinants of Health Will the patient participate in the screening: Yes Do you worry about a steady place to live?: No Do you have any problems with any of the following?: No known problems In the past 12 months,have you had to go without utilities?: No Have you or anyone in your house had to go without enough: No Transportation Issues: No Has anyone in your support network made you feel unsafe?: No Does the patient want assistance with any of the above?: No - Physical Exam Vital Signs: Vital Signs - 24 hr Temp Pulse Resp BP BP Pulse Ox 12/10/23 04:35 97.1 F 98 H 22 133/91 92 L 12/10/23 04:16 95 12/10/23 04:01 100 H 20 106/69 96 12/10/23 03:52 102 H 20 134/87 96 12/10/23 03:30 98 H 19 134/87 95 12/10/23 02:35 95 12/10/23 02:17 98.9 F 121 H 20 159/105 95 General Appearance: mild distress Neurologic Exam: alert Ears, Nose, Throat Exam: dry mucous membranes Respiratory Exam: No respiratory distress Cardiovascular Exam: regular rate/rhythm Gastrointestinal/Abdomen Exam: soft Extremity Exam: No marcello's sign, No pedal edema Skin Exam: normal color, No rash Results - Labs Lab/Micro Results: Lab Results-Last 24 Hours 12/10/23 12/10/23 12/10/23 Range/Units 02:39 03:18 03:18 WBC 18.0 H (4.0-10.5) x10^3/uL RBC 4.52 (4.1-5.6) x10^6/uL Hgb 13.6 (12.5-18.0) g/dL Hct 40.8 L (42-50) % MCV 90.3 (78-100) fL MCH 30.1 (26-32) pg MCHC 33.3 (32-36) g/dL RDW 13.2 (11.5-14.0) % Plt Count 223 (150-450) x10^3/uL MPV 10.0 (7.5-11.0) fL Gran % 80.5 H (36.0-66.0) % Immature Gran % (Auto) 0.6 H (0.00-0.4) % Nucleat RBC Rel Count 0.0 (0.00-0.1) % Eos # (Auto) 0.01 (0-0.5) x10^3/uL Immature Gran # (Auto) 0.10 H (0.00-0.03) x10^3u/L Absolute Lymphs (auto) 1.82 (1.0-4.6) x10^3/uL Absolute Monos (auto) 1.50 H (0.0-1.3) x10^3/uL Absolute Nucleated RBC 0.00 (0.00-0.01) x10^3u/L Lymphocytes % 10.1 L (24.0-44.0) % Monocytes % 8.4 (0.0-12.0) % Eosinophils % 0.1 (0.00-5.0) % Basophils % 0.3 (0.0-0.4) % Absolute Granulocytes 14.48 H (1.4-6.9) x10^3/uL Basophils # 0.05 (0-0.4) x10^3/uL Sodium 136 (135-145) mmol/L Potassium 3.8 (3.5-5.1) mmol/L Chloride 104 (98-107) mmol/L Carbon Dioxide 21 L (22-30) mmol/L Anion Gap 14.2 (5-15) MEQ/L BUN 18 (9-20) mg/dL Creatinine 1.25 (0.66-1.25) mg/dL Estimated GFR 71.0 ML/MIN Glucose 148 H (74-106) mg/dL Lactic Acid (0.4-2.0) Calcium 9.0 (8.4-10.2) mg/dL Total Bilirubin 1.50 H (0.2-1.3) mg/dL AST 20 (17-59) U/L ALT 32 (0-50) U/L Alkaline Phosphatase 61 (38-126) U/L Serum Total Protein 7.0 (6.3-8.2) g/dL Albumin 3.9 (3.5-5.0) g/dL Urine Color Dark Yellow (Yellow) Urine Appearance Clear (Clear) Urine pH 5.5 (4.6-8.0) Ur Specific [place] 1.025 (1.005-1.030) Urine Protein 100 A (Negative) Urine Glucose (UA) Negative (Negative) mg/dL Urine Ketones Negative (Negative) Urine Blood Moderate A (Negative) Urine Nitrite Negative (Negative) Urine Bilirubin Negative (Negative) Urine Urobilinogen 1.0 A (0.2) mg/dL Ur Leukocyte Esterase Moderate A (Negative) U Hyaline Cast (Auto) NONE SEEN (0-2) /LPF Urine Microscopic RBC 3-5 (0-5) /HPF Urine Microscopic WBC >100 A (0-5) /HPF Ur Epithelial Cells None Seen (None Seen) /HPF Urine Bacteria Rare A (None Seen) /HPF Urine Culture Reflexed YES (NO) Influenza Type A Ag (NEGATIVE) Influenza Type B Ag (NEGATIVE) RSV (PCR) (NEGATIVE) SARS-CoV-2 (PCR) (NEGATIVE) 12/10/23 12/10/23 Range/Units 03:18 03:25 WBC (4.0-10.5) x10^3/uL RBC (4.1-5.6) x10^6/uL Hgb (12.5-18.0) g/dL Hct (42-50) % MCV (78-100) fL MCH (26-32) pg MCHC (32-36) g/dL RDW (11.5-14.0) % Plt Count (150-450) x10^3/uL MPV (7.5-11.0) fL Gran % (36.0-66.0) % Immature Gran % (Auto) (0.00-0.4) % Nucleat RBC Rel Count (0.00-0.1) % Eos # (Auto) (0-0.5) x10^3/uL Immature Gran # (Auto) (0.00-0.03) x10^3u/L Absolute Lymphs (auto) (1.0-4.6) x10^3/uL Absolute Monos (auto) (0.0-1.3) x10^3/uL Absolute Nucleated RBC (0.00-0.01) x10^3u/L Lymphocytes % (24.0-44.0) % Monocytes % (0.0-12.0) % Eosinophils % (0.00-5.0) % Basophils % (0.0-0.4) % Absolute Granulocytes (1.4-6.9) x10^3/uL Basophils # (0-0.4) x10^3/uL Sodium (135-145) mmol/L Potassium (3.5-5.1) mmol/L Chloride (98-107) mmol/L Carbon Dioxide (22-30) mmol/L Anion Gap (5-15) MEQ/L BUN (9-20) mg/dL Creatinine (0.66-1.25) mg/dL Estimated GFR ML/MIN Glucose (74-106) mg/dL Lactic Acid 1.9 (0.4-2.0) Calcium (8.4-10.2) mg/dL Total Bilirubin (0.2-1.3) mg/dL AST (17-59) U/L ALT (0-50) U/L Alkaline Phosphatase (38-126) U/L Serum Total Protein (6.3-8.2) g/dL Albumin (3.5-5.0) g/dL Urine Color (Yellow) Urine Appearance (Clear) Urine pH (4.6-8.0) Ur Specific [place] (1.005-1.030) Urine Protein (Negative) Urine Glucose (UA) (Negative) mg/dL Urine Ketones (Negative) Urine Blood (Negative) Urine Nitrite (Negative) Urine Bilirubin (Negative) Urine Urobilinogen (0.2) mg/dL Ur Leukocyte Esterase (Negative) U Hyaline Cast (Auto) (0-2) /LPF Urine Microscopic RBC (0-5) /HPF Urine Microscopic WBC (0-5) /HPF Ur Epithelial Cells (None Seen) /HPF Urine Bacteria (None Seen) /HPF Urine Culture Reflexed (NO) Influenza Type A Ag NEGATIVE (NEGATIVE) Influenza Type B Ag NEGATIVE (NEGATIVE) RSV (PCR) NEGATIVE (NEGATIVE) SARS-CoV-2 (PCR) NEGATIVE (NEGATIVE) Assessment/Plan (1) Fever Current Visit: Yes Status: Acute Assessment & Plan: Likely from UTI versus abdominal infection 1. Tylenol 2. Antibiotics 3. Monitor temps Code(s): R50.9 - FEVER, UNSPECIFIED (2) Pyelonephritis Current Visit: Yes Status: Acute Assessment & Plan: Likely with UTI 1. IVFs 2. Antibiotics 3. Follow cultures Code(s): N12 - TUBULO-INTERSTITIAL NEPHRITIS, NOT SPCF ACUTE OR CHRONIC (3) Congestive heart failure Current Visit: Yes Status: Acute Assessment & Plan: Clinically dry 1. Hold diuretics 2. IVFs 3. Monitor O2 sats Code(s): I50.9 - HEART FAILURE, UNSPECIFIED Telemedicine Encounter - Telemedicine Encounter Telemedicine Encounter: The entirety of this encounter was performed via Telemedicine"
[2023-12-10] MEDS ORDERED: Docusate Sodium 100 MG PO PRN (07:30)
[2023-12-10] MEDS: Protonix 40MG Tablet PO SCH (10:02)
[2023-12-10] MEDS: ENOXAPARIN SODIUM SQ SCH (10:02)
[2023-12-10] MEDS: Ecotrin 325 MG PO SCH (10:03)
[2023-12-10] MEDS: Cozaar 50 MG PO SCH (10:03)
[2023-12-10] MEDS: TYLENOL 325 MG PO PRN (10:03)
[2023-12-10] MEDS: Coreg 3.125 MG PO SCH (10:03)
[2023-12-10] MEDS: Sodium Chloride 0.9% 1000 ML 1,000 ML IV SCH (10:10)
[2023-12-10] MEDS: Compazine 10 MG/2 ML IV ONE (12:35)
--- NOTE | 2023-12-10 13:57 | XRAY ---
Indication: Abdomen pain. UTI. Fever. Conventional contrast enhanced CTA abdomen/pelvis performed using 80 cc Isovue 370 contrast. 2-D sagittal and coronal reformatted images obtained. Additional 3-D reformatted images obtained using separate workstation. Comparison: None Very minimal arteriosclerotic disease distal abdominal aorta without aneurysm/dissection. Normal widely patent branching celiac, superior mesenteric, single left/right main renal arteries, and inferior mesenteric arteries. Lung bases demonstrate minimal subsegmental atelectasis/scarring and tiny left base calcified granuloma. Heart is enlarged. Small hiatal hernia. Noncontrasted stomach and bowel loops appear nonobstructed. Scattered distal descending and sigmoid diverticulosis without diverticulitis. Previous appendectomy. Seminal vesicles are prominent with stranding bilaterally suggesting seminal vesiculitis. No free fluid/air. Diffuse fatty liver. Remaining liver, gallbladder, pancreas, spleen, adrenal glands, kidneys, ureters, and near empty urinary bladder are unremarkable. No pathologic retroperitoneal lymphadenopathy. Osseous structures intact with minimal degenerative changes throughout lumbar spine and small superior L3 Schmorl node.. Small fatty bilateral inguinal hernias. Impression: 1. Very minimal abdominal aortic arteriosclerotic disease. Remaining CTA abdomen/pelvis with contrast exam is normal. 2. Incidental prominent seminal vesicles with stranding bilaterally. Rule out seminal vesiculitis. 3. Chronic findings including left lung base calcified granuloma, small hiatal hernia, colonic diverticulosis, fatty liver, fatty bilateral inguinal hernias, and chronic bony findings.
[2023-12-10] MEDS: Levofloxacin 500MG/100ML D5W 500 MG/100 ML BAG IV SCH (21:20)
[2023-12-11 04:47] LABS: Absolute Neutrophil Ct (ANC) 10.77 x10^3/uL (1.4-6.9); BASOPHIL % 0.3 % (0.0-0.4); Basophil (Absolute #) 0.04 x10^3/uL (0-0.4); Eosinophil % 0.6 % (0.00-5.0); Eosinophil (Absolute #) 0.09 x10^3/uL (0-0.5); Hematocrit 38.2 % (42-50); Hemoglobin 12.1 g/dL (12.5-18.0); IMMATURE GRAN # 0.08 x10^3u/L (0.00-0.03); IMMATURE GRAN % 0.6 % (0.00-0.4); Lymphocyte (Absolute #) 1.74 x10^3/uL (1.0-4.6); Lymphocytes % 12.6 % (24.0-44.0); Mean Cell Volume 92.5 fL (78-100); Mean Corpuscular Hemoglobin 29.3 pg (26-32); Mean Corpuscular Hgb Concent. 31.7 g/dL (32-36); Mean Platelet Volume 9.9 fL (7.5-11.0); Monocyte (Absolute #) 1.13 x10^3/uL (0.0-1.3); Monocytes % 8.2 % (0.0-12.0); Neutrophil % 77.7 % (36.0-66.0); Platelet Count 179 x10^3/uL (150-450); Red Blood Count 4.13 x10^6/uL (4.1-5.6); Red Cell Distribution Width 13.5 % (11.5-14.0); White Blood Count 13.9 x10^3/uL (4.0-10.5)
[2023-12-11 05:37] LABS: ALBUMIN 3.5 g/dL (3.5-5.0); ANION GAP 10.7 MEQ/L (5-15); BILIRUBIN,TOTAL 0.9 mg/dL (0.2-1.3); Calcium 8.4 mg/dL (8.4-10.2); Creatinine 1 1.04 mg/dL (0.66-1.25); EST GLOMERULAR FILTRATION RATE 88.6 ML/MIN; Total Protein 6.8 g/dL (6.3-8.2)
[2023-12-11 07:55] VITALS: RESP 16
--- NOTE | 2023-12-11 10:21 | PCM.NOTE ---
Date and Time: 12/11/23 1020 Subjective Assessment: Mr. REESE is a 48 year old male with a past medical history significant for hypertension, hyperlipidemia and CHF who had recent umbilical hernia repair earlier this month but presents to the hospital with complaints of fever and chills with temp up to 102. He was found to have an elevated WBC count and was tachycardic. Urinalysis demonstrated pyuria and he was recommended for admission for fluids and antibiotics. He is resting in bed, awake/alert, just anxious. No dysuria, hematuria or urgency. No nausea, vomiting or diarrhea. - Review of Systems Constitutional: No Fever, No Chills Eyes: No Symptoms Ears, Nose, & Throat: No Symptoms Respiratory: No Cough, No Short Of Breath Cardiac: No Chest Pain, No Edema, No Syncope Abdominal/Gastrointestinal: No Abdominal Pain, No Nausea, No Vomiting, No Diarrhea Genitourinary Symptoms: No Dysuria Musculoskeletal: No Back Pain, No Neck Pain Skin: No Rash Neurological: No Dizziness, No Focal Weakness, No Sensory Changes Psychological: No Symptoms Endocrine: No Symptoms Hematologic/Lymphatic: No Symptoms Immunological/Allergic: No Symptoms Objective Exam General Appearance: no apparent distress, alert Neurologic Exam: alert, oriented x 3, cooperative, normal mood/affect, nml cerebellar function, sensation nml, No motor deficits Skin Exam: normal color, warm, dry Eye Exam: PERRL, EOMI, eyes nml inspection Ears, Nose, Throat Exam: normal ENT inspection, pharynx normal, moist mucous membranes Neck Exam: normal inspection, non-tender, supple, full range of motion Respiratory Exam: normal breath sounds, lungs clear, No respiratory distress Cardiovascular Exam: regular rate/rhythm, normal heart sounds Gastrointestinal/Abdomen Exam: soft, No tenderness, No mass Extremity Exam: normal inspection, normal range of motion Back Exam: normal inspection, normal range of motion, No CVA tenderness, No vertebral tenderness Male Genitalia Exam: deferred Rectal Exam: deferred Objective Data Vital Signs: Vital Signs - 24 hr Temp Pulse Resp BP Pulse Ox 12/11/23 07:55 98.6 F 99 H 16 159/91 95 12/11/23 04:00 98.7 F 96 H 20 146/93 96 12/10/23 23:28 98.2 F 98 H 21 134/81 96 12/10/23 19:21 97.8 F 78 20 124/69 95 12/10/23 16:00 99.0 F 94 H 16 123/75 94 L 12/10/23 11:45 98.5 F 105 H 16 137/74 95 Pain Assessment - Last Documented Pain Intensity 0 Pain Scale Used 0-10 Pain Scale Intake and Output: Intake & Output 12/08/23 12/09/23 12/10/23 12/11/23 11:59 11:59 11:59 11:59 Intake Total 120 5603 Balance 120 5603 Weight 125.7 kg Lab Results: Lab Results-Last 24 Hours 12/10/23 12/11/23 12/11/23 Range/Units 04:30 04:26 04:26 WBC 13.9 H (4.0-10.5) x10^3/uL RBC 4.13 (4.1-5.6) x10^6/uL Hgb 12.1 L (12.5-18.0) g/dL Hct 38.2 L (42-50) % MCV 92.5 (78-100) fL MCH 29.3 (26-32) pg MCHC 31.7 L (32-36) g/dL RDW 13.5 (11.5-14.0) % Plt Count 179 (150-450) x10^3/uL MPV 9.9 (7.5-11.0) fL Gran % 77.7 H (36.0-66.0) % Immature Gran % (Auto) 0.6 H (0.00-0.4) % Nucleat RBC Rel Count 0.0 (0.00-0.1) % Eos # (Auto) 0.09 (0-0.5) x10^3/uL Immature Gran # (Auto) 0.08 H (0.00-0.03) x10^3u/L Absolute Lymphs (auto) 1.74 (1.0-4.6) x10^3/uL Absolute Monos (auto) 1.13 (0.0-1.3) x10^3/uL Absolute Nucleated RBC 0.00 (0.00-0.01) x10^3u/L Lymphocytes % 12.6 L (24.0-44.0) % Monocytes % 8.2 (0.0-12.0) % Eosinophils % 0.6 (0.00-5.0) % Basophils % 0.3 (0.0-0.4) % Absolute Granulocytes 10.77 H (1.4-6.9) x10^3/uL Basophils # 0.04 (0-0.4) x10^3/uL Sodium 137 (135-145) mmol/L Potassium 4.0 (3.5-5.1) mmol/L Chloride 107 (98-107) mmol/L Carbon Dioxide 23 (22-30) mmol/L Anion Gap 10.7 (5-15) MEQ/L BUN 13 (9-20) mg/dL Creatinine 1.04 (0.66-1.25) mg/dL Estimated GFR 88.6 ML/MIN Glucose 106 (74-106) mg/dL Hemoglobin A1c 5.71 (4.5-6.0) % Calcium 8.4 (8.4-10.2) mg/dL Total Bilirubin 0.90 (0.2-1.3) mg/dL AST 17 (17-59) U/L ALT 24 (0-50) U/L Alkaline Phosphatase 57 (38-126) U/L Serum Total Protein 6.8 (6.3-8.2) g/dL Albumin 3.5 (3.5-5.0) g/dL Radiology Exams: Radiology Procedures Category Date Time Status CTA ABD/PEL W AND/OR W/O CONTR [CT] Routine Exams 12/10/23 07:33 Completed Multi-Disciplinary Progress Notes: Multi-Disciplinary Progress Notes 12/10/23 15:19 Case Management Note by Yolanda Fontana PATIENT CURRENTLY HAS NO INSURANCE FOR RX. HE REPORTS HIS HAS GOOD RX COUPON CARDS. WILL NEED TO CALL AND CHECK PRICES FOR ANTIBIOTICS PRIOR TO DC TO BE SURE THEY ARE AFFORDABLE FOR PATIENT Initialized on 12/10/23 15:19 - END OF NOTE
--- NOTE | 2023-12-11 10:37 | PCM.DS ---
Discharge Summary Date of Admission: 12/10/23 04:31 Date of Discharge: 12/11/23 Admitting Physician: CAN SANII MD Primary Care Provider: NARA VALENTINE Allergies Allergies Penicillins Allergy (Intermediate, Verified 12/10/23 02:27) shrimp Allergy (Intermediate, Verified 12/10/23 02:27) Hospital Summary - Hospital Course Hospital Course: Mr. REESE is a 48 year old male with a past medical history significant for hypertension, hyperlipidemia and CHF who had recent umbilical hernia repair earlier this month. He presented to the hospital on 12/10/23 with complaints of fever and chills with temp up to 102. He was found to have an elevated WBC count and was tachycardic. Urinalysis demonstrated pyuria and he was recommended for admission for fluids and antibiotics. No dysuria, hematuria or urgency since admission. No nausea, vomiting, or diarrhea. Discussed CT findings of incidental prominent seminal vesicles with stranding bilaterally. Ruleout seminal vesiculitis. Will check urine for STI. Pt is asymptomatic. Will make Op f/u appointment with urology and follow cultures OP. Pt does not have prescription insurance. Discussed OP med options and he is agreeable to Levaquin and cost per Good RX. He denies CP, abd pain, dysuria. - Vitals & Intake/Output Vital Signs: Vital Signs Temperature 98.6 F 12/11/23 07:55 Pulse Rate 99 H 12/11/23 07:55 Respiratory Rate 16 12/11/23 07:55 Blood Pressure 159/91 12/11/23 07:55 O2 Sat by Pulse Oximetry 95 12/11/23 07:55 Intake & Output: Intake & Output 12/08/23 12/09/23 12/10/23 12/11/23 11:59 11:59 11:59 11:59 Intake Total 120 5603 Balance 120 5603 Weight 125.7 kg - Lab Result Diagrams: 12/11/23 04:26 12/11/23 04:26 Lab Results-Last 24 Hrs: Lab Results-Last 24 Hours 12/11/23 12/11/23 Range/Units 04:26 04:26 WBC 13.9 H (4.0-10.5) x10^3/uL RBC 4.13 (4.1-5.6) x10^6/uL Hgb 12.1 L (12.5-18.0) g/dL Hct 38.2 L (42-50) % MCV 92.5 (78-100) fL MCH 29.3 (26-32) pg MCHC 31.7 L (32-36) g/dL RDW 13.5 (11.5-14.0) % Plt Count 179 (150-450) x10^3/uL MPV 9.9 (7.5-11.0) fL Gran % 77.7 H (36.0-66.0) % Immature Gran % (Auto) 0.6 H (0.00-0.4) % Nucleat RBC Rel Count 0.0 (0.00-0.1) % Eos # (Auto) 0.09 (0-0.5) x10^3/uL Immature Gran # (Auto) 0.08 H (0.00-0.03) x10^3u/L Absolute Lymphs (auto) 1.74 (1.0-4.6) x10^3/uL Absolute Monos (auto) 1.13 (0.0-1.3) x10^3/uL Absolute Nucleated RBC 0.00 (0.00-0.01) x10^3u/L Lymphocytes % 12.6 L (24.0-44.0) % Monocytes % 8.2 (0.0-12.0) % Eosinophils % 0.6 (0.00-5.0) % Basophils % 0.3 (0.0-0.4) % Absolute Granulocytes 10.77 H (1.4-6.9) x10^3/uL Basophils # 0.04 (0-0.4) x10^3/uL Sodium 137 (135-145) mmol/L Potassium 4.0 (3.5-5.1) mmol/L Chloride 107 (98-107) mmol/L Carbon Dioxide 23 (22-30) mmol/L Anion Gap 10.7 (5-15) MEQ/L BUN 13 (9-20) mg/dL Creatinine 1.04 (0.66-1.25) mg/dL Estimated GFR 88.6 ML/MIN Glucose 106 (74-106) mg/dL Calcium 8.4 (8.4-10.2) mg/dL Total Bilirubin 0.90 (0.2-1.3) mg/dL AST 17 (17-59) U/L ALT 24 (0-50) U/L Alkaline Phosphatase 57 (38-126) U/L Serum Total Protein 6.8 (6.3-8.2) g/dL Albumin 3.5 (3.5-5.0) g/dL Micro Results-Entire Visit: Microbiology 12/10/23 02:39 Urine Culture - Preliminary Urine, Void GRAM NEGATIVE ID AND SENSITIVITY PENDING 12/10/23 03:30 Blood Culture - Preliminary Blood 12/10/23 03:15 Blood Culture - Preliminary Blood - Radiology Exams Ordered Rad Exams-Entire Visit: Radiology Procedures Category Date Time Status CTA ABD/PEL W AND/OR W/O CONTR [CT] Routine Exams 12/10/23 07:33 Completed Discharge Exam General Appearance: no apparent distress, alert, obese Neurologic Exam: alert, oriented x 3, cooperative, normal mood/affect, nml cerebellar function, sensation nml, No motor deficits Eye Exam: PERRL, EOMI, eyes nml inspection Ears, Nose, Throat Exam: normal ENT inspection, pharynx normal, moist mucous membranes Neck Exam: normal inspection, non-tender, supple, full range of motion Respiratory Exam: normal breath sounds, lungs clear, No respiratory distress Cardiovascular Exam: regular rate/rhythm, normal heart sounds Gastrointestinal/Abdomen Exam: soft, No tenderness, No mass Male Genitalia Exam: deferred Rectal Exam: deferred Back Exam: normal inspection, normal range of motion, No CVA tenderness, No vertebral tenderness Extremity Exam: normal inspection, normal range of motion Skin Exam: normal color, warm, dry Final Diagnosis/Problem List - Final Discharge Diagnosis/Problem (1) Pyelonephritis Current Visit: Yes Status: Acute Assessment & Plan: -with UTI - IVFs - Antibiotics - Follow cultures OP Code(s): N12 - TUBULO-INTERSTITIAL NEPHRITIS, NOT SPCF ACUTE OR CHRONIC (2) Fever Current Visit: Yes Status: Resolved Assessment & Plan: - resolved since admission - Tylenol PRN Code(s): R50.9 - FEVER, UNSPECIFIED (3) Congestive heart failure Current Visit: Yes Status: Acute Assessment & Plan: Clinically dry 1. Hold diuretics 2. IVFs 3. Monitor O2 sats Code(s): I50.9 - HEART FAILURE, UNSPECIFIED (4) Seminal vesiculitis Current Visit: Yes Status: Acute Assessment & Plan: - CT abd/ pelvis: Impression: 1. Very minimal abdominal aortic arteriosclerotic disease. Remaining CTA abdomen/pelvis with contrast exam is normal. 2. Incidental prominent seminal vesicles with stranding bilaterally. Rule out seminal vesiculitis. 3. Chronic findings including left lung base calcified granuloma, small hiatal hernia, colonic diverticulosis, fatty liver, fatty bilateral inguinal hernias, and chronic bony findings. - Urine- GC/ Chlamydia ordered - OP f/u with urology ordered - Continue OP antibiotics Code(s): N49.0 - INFLAMMATORY DISORDERS OF SEMINAL VESICLE - Discharge Discharge Date: 12/11/23 Disposition: Home, Self-Care Condition: Stable Prescriptions: Continue Spironolactone 12.5 mg PO DAILY Losartan Potassium 100 mg PO DAILY Furosemide [Lasix] 20 mg PO DAILY Carvedilol 3.125 mg [Coreg 3.125 MG] 1 tab PO BID Aspirin EC 325 mg [Ecotrin 325 MG] 1 tab PO DAILY Additional Instructions: Please obtain an over the counter probiotic to take with this antibiotics as it may cause stomach upset. Follow up with: NARA VALENTINE NP [Primary Care Provider] - 12/15/23 10:00 am
[2023-12-11 12:41] VITALS: BP 153/98; PULSE 94; TEMP 97.3; O2SAT 94
[2023-12-11 13:31] LABS: CHLAMYDIA DNA NOT DETECTED (NEGATIVE); GC DNA Probe NOT DETECTED (NEGATIVE)
== END 2023-12-11 13:55 | disposition home or self-care (01) ==
LOC: ED 01:57 → MED SURG 04:31
PROVIDERS: ADMIT Internal Medicine Nephrology; ATTEND Internal Medicine Nephrology
DX: N12 Tubulo-interstitial nephritis, not specified as acute or chronic (principal); R50.9 Fever, unspecified; I11.0 Hypertensive heart disease with heart failure; I50.9 Heart failure, unspecified; N49.0 Inflammatory disorders of seminal vesicle; F17.200 Nicotine dependence, unspecified, uncomplicated; E78.5 Hyperlipidemia, unspecified; R00.0 Tachycardia, unspecified; Z79.899 Other long term (current) drug therapy; Z11.52 Encounter for screening for COVID-19
CPT/HCPCS: 0241U; 36000; 36415; 74174; 80053; 81001; 83036; 83605; 85025; 87040; 87077; 87086; 87186; 87491; 87591; 93005; 93041; 93268; 94760; 96365; 99285; G0378; J1650; J1956; A9270-GY